=== PATIENT | female | born 1965 | race Caucasian/White ===

== ENCOUNTER 2019-06-05 11:41 | Emergency (ER) | payer OTHER ==
[~2019-06-05] VITALS: Ht 160 cm; Wt 95.3 kg
[2019-06-05 11:42] VITALS: Ht 160 cm; Wt 95.3 kg
[2019-06-05 13:05] VITALS: BP 153/90
== END 2019-06-05 13:05 | disposition home or self-care (01) ==
LOC: ED 11:41
DX: T78.1XXA Other adverse food reactions, not elsewhere classified, initial encounter (principal); E78.00 Pure hypercholesterolemia, unspecified; Z98.51 Tubal ligation status; X58.XXXA Exposure to other specified factors, initial encounter